=== PATIENT | female | born 1980 | race Caucasian/White ===

== ENCOUNTER 2019-09-19 23:13 | Emergency (ER) | payer MEDICAID ==
[~2019-09-19] VITALS: Ht 157.5 cm; Wt 68.0 kg
[~2019-09-19 23:13] MED LIST: ACET650S25 PO; SULF1TAB48 PO
[2019-09-20] MEDS ORDERED: ACETAMINOPHEN 650MG/20.3ML UDC PO ONE (00:15)
[2019-09-20 00:36] LABS: BASOPHILS % 0.9 % (0.0-2.0); HEMATOCRIT. 40.3 % (36.0-48.0); HEMOGLOBIN. 13.5 g/dL (12.0-16.0); LYMPHOCYTES % 41.3 % (20.0-50.0); MEAN CORPUSCULAR HEMOGLOBIN 28.3 pg (28.0-32.0); MEAN CORPUSCULAR VOLUME 84.3 fL (81.0-99.0); MEAN PLATELET VOLUME 8.5 fl (7.4-10.4); MONOCYTES % 7.7 % (2.0-8.0); NEUTROPHILS % 47.1 % (40.0-76.0); PLATELET 235 x1000/uL (130-400); RED BLOOD CELL COUNT 4.77 mill/uL (4.2-5.4); RED CELL DISTRIBUTION WIDTH 16.4 % (11.6-14.6)
[2019-09-20 00:40] LABS: CHLORIDE 107 mEq/L (98-107)
[2019-09-20 01:03] LABS: B-HCG QUANTITATIVE 3293 mIU/mL (<3)
[2019-09-20 01:09] LABS: CLARITY URINE CLEAR (CLEAR); COLOR URINE YELLOW (YELLOW); KETONES URINE NEGATIVE (NEGATIVE); LEUKOCYTE ESTERASE URINE TRACE (NEGATIVE); NITRITE URINE NEGATIVE (NEGATIVE); OCCULT BLOOD URINE 2+ (NEGATIVE); PROTEIN URINE NEGATIVE (NEGATIVE); SPECIFIC GRAVITY URINE 1.006 (1.005-1.030); UROBILINOGEN URINE 0.2 E.U./dL (0.2-1.0)
[2019-09-20 04:41] VITALS: BP 115/73
== END 2019-09-20 04:43 | disposition home or self-care (01) ==
LOC: ER 23:13
DX: O20.0 Threatened abortion (principal); O34.11 Maternal care for benign tumor of corpus uteri, first trimester; Z3A.01 Less than 8 weeks gestation of pregnancy; O09.521 Supervision of elderly multigravida, first trimester
CPT/HCPCS: 36415; 76801; 80053; 81003; 81025; 84702; 85025; 86850; 86900; 99284

== ENCOUNTER 2019-12-10 09:25 | Emergency (ER) | payer MEDICAID ==
[~2019-12-10] VITALS: Ht 157.5 cm; Wt 70.0 kg
[2019-12-10] MEDS ORDERED: SODIUM CHLORIDE 0.9% 1,000 ML IV ONE (09:38)
[2019-12-10 10:30] LABS: BASOPHILS % 0.8 % (0.0-2.0); EOSINOPHILS % 0.3 % (0.0-5.0); HEMATOCRIT. 29.4 % (36.0-48.0); HEMOGLOBIN. 9.4 g/dL (12.0-16.0); LYMPHOCYTES % 15.8 % (20.0-50.0); MEAN CORPUSCULAR HEMOGLOBIN 22.9 pg (28.0-32.0); MEAN CORPUSCULAR VOLUME 71.7 fL (81.0-99.0); MEAN PLATELET VOLUME 8.2 fl (7.4-10.4); MONOCYTES % 6.4 % (2.0-8.0); NEUTROPHILS % 76.7 % (40.0-76.0); PLATELET 304 x1000/uL (130-400); RED CELL DISTRIBUTION WIDTH 17.6 % (11.6-14.6)
[2019-12-10 10:33] LABS: CLARITY URINE CLEAR (CLEAR); COLOR URINE YELLOW (YELLOW); KETONES URINE NEGATIVE (NEGATIVE); LEUKOCYTE ESTERASE URINE NEGATIVE (NEGATIVE); NITRITE URINE NEGATIVE (NEGATIVE); OCCULT BLOOD URINE TRACE (NEGATIVE); PH URINE 5.5 (4.5-8.0); PROTEIN URINE NEGATIVE (NEGATIVE); SPECIFIC GRAVITY URINE 1.024 (1.005-1.030); UROBILINOGEN URINE 0.2 E.U./dL (0.2-1.0)
[2019-12-10 10:35] LABS: CHLORIDE 107 mEq/L (98-107)
[2019-12-10 10:36] LABS: PROTHROMBIN TIME 10.6 sec (9.6-11.0)
[2019-12-10 10:45] LABS: HCG SCREEN NEGATIVE
[2019-12-10] MEDS ORDERED: CEFTRIAXONE 1 G PREMIX 50 ML IV ONE (11:00)
[2019-12-10 13:40] VITALS: BP 126/76
== END 2019-12-10 13:50 | disposition home or self-care (01) ==
LOC: ER 09:25
DX: D25.9 Leiomyoma of uterus, unspecified (principal); N39.0 Urinary tract infection, site not specified; E86.0 Dehydration
CPT/HCPCS: 36415; 71045; 76830; 76856; 80053; 81003; 81025; 83690; 84484; 84703; 85025; 85610; 93005; 96365; 99285; J0696; J7030

== ENCOUNTER 2020-05-08 08:10 | Emergency (ER) | payer MEDICAID ==
[~2020-05-08] VITALS: Ht 160 cm; Wt 71.0 kg
[2020-05-08 09:10] LABS: CHLORIDE 108 mEq/L (98-107)
[2020-05-08 09:13] LABS: BASOPHILS % 0.9 % (0.0-2.0); EOSINOPHILS % 1.8 % (0.0-5.0); HEMATOCRIT. 29.2 % (36.0-48.0); LYMPHOCYTES % 30.5 % (20.0-50.0); MEAN CORPUSCULAR HEMOGLOBIN 20.5 pg (28.0-32.0); MEAN CORPUSCULAR VOLUME 66.7 fL (81.0-99.0); MONOCYTES % 6.3 % (2.0-8.0); NEUTROPHILS % 60.5 % (40.0-76.0); PLATELET 359 x1000/uL (130-400); PROTHROMBIN TIME 10.7 sec (9.6-11.0); RED BLOOD CELL COUNT 4.37 mill/uL (4.2-5.4); RED CELL DISTRIBUTION WIDTH 18.7 % (11.6-14.6)
[2020-05-08 09:23] LABS: B-HCG QUANTITATIVE < 1 mIU/mL (<3)
[2020-05-08 10:13] LABS: PLATELET ESTIMATE NORMAL
[2020-05-08 10:55] LABS: CLARITY URINE CLEAR (CLEAR); COLOR URINE YELLOW (YELLOW); KETONES URINE NEGATIVE (NEGATIVE); LEUKOCYTE ESTERASE URINE NEGATIVE (NEGATIVE); NITRITE URINE NEGATIVE (NEGATIVE); OCCULT BLOOD URINE 1+ (NEGATIVE); PH URINE 5.5 (4.5-8.0); PROTEIN URINE NEGATIVE (NEGATIVE); SPECIFIC GRAVITY URINE 1.025 (1.005-1.030); UROBILINOGEN URINE 0.2 E.U./dL (0.2-1.0)
[2020-05-08 11:32] VITALS: BP 139/73
[2020-05-08 12:25] LABS: *AMPHETAMINES SCREEN URINE NEGATIVE (NEGATIVE); *BARBITURATES SCREEN URINE NEGATIVE (NEGATIVE); *COCAINE SCREEN URINE NEGATIVE (NEGATIVE); OPIATES URINE SCREEN NEGATIVE (NEGATIVE)
[2020-05-08 12:26] LABS: *BENZODIAZEPINES SCREEN URINE NEGATIVE (NEGATIVE); CANNABINOID URINE SCREEN NEGATIVE (NEGATIVE); PHENCYCLIDINE URINE SCREEN NEGATIVE (NEGATIVE)
[2020-05-08 12:28] LABS: METHADONE URINE SCREEN NEGATIVE (NEGATIVE)
== END 2020-05-08 11:35 | disposition home or self-care (01) ==
LOC: ER 08:42
DX: N93.8 Other specified abnormal uterine and vaginal bleeding (principal); E86.0 Dehydration; D64.9 Anemia, unspecified
CPT/HCPCS: 36415; 76830; 76856; 80053; 80305; 81003; 81025; 84702; 85025; 86850; 86900; 93005; 99285

== ENCOUNTER 2023-08-26 01:20 | Emergency (ER) | payer MEDICAID ==
[~2023-08-26] VITALS: Ht 157.5 cm; Wt 73.0 kg
[2023-08-26 01:53] VITALS: O2SAT 100
[2023-08-26] MEDS ORDERED: KETOROLAC 15MG/ML VIAL IM ONE (06:30)
[2023-08-26] MEDS ORDERED: METOCLOPRAMIDE HCL 10MG TABLET PO ONE (08:15)
[2023-08-26] MEDS: KETOROLAC 15MG/ML VIAL IM NR (11:05)
[2023-08-26] MEDS: METOCLOPRAMIDE HCL 10MG TABLET PO NR (11:05)
[2023-08-26] MEDS ORDERED: NAPR-1176 MT (12:29)
[2023-08-26 12:40] VITALS: BP 119/78; PULSE 64; RESP 16; TEMP 98.1
== END 2023-08-26 13:11 | disposition home or self-care (01) ==
LOC: ER 01:28
DX: R51.9 Headache, unspecified (principal)
CPT/HCPCS: 99285; 70450; 81025; 96372; J8597; J1885